=== PATIENT | male | born 1935 | race Caucasian/White ===

== ENCOUNTER 2021-01-15 19:16 | Inpatient (IN) | payer MEDICARE ==
[2021-01-15] MEDS ORDERED: Piperacillin/Tazobactam 4.5 GM VIAL ONE (19:29)
[2021-01-15] MEDS ORDERED: Vancomycin 1 GM/200 ML BAG ONE (19:40)
[2021-01-15] MEDS ORDERED: Norepinephrine 8 MG/0.9% NS 250 ML ONE (19:42)
[2021-01-15 19:53] LABS: #Eosinphils 0.2 thou/uL (0.0-0.7); #Lymphocytes 1.5 thou/uL (1.20-3.40); #Neutrophils 10.5 thou/uL (1.40-6.50); %Basophils 0.3 % (0.0-1.0); %Eosinophils 1.7 % (0.0-10.0); %Lymphocytes 11.6 % (21.0-51.0); %Monocytes 7.7 % (0.0-10.0); %Neutrophils 78.7 % (42.0-75.0); Hemoglobin 12.4 g/dL (14.0-18.0); Mean Corpuscular HGB CONC 33.6 g/dL (32.0-36.0); Mean Corpuscular Hemoglobin 31.6 pg (27.0-31.0); Mean Platelet Volume 7.2 fL (7.4-10.4); Platelet Count 266 thou/uL (130-400); RBC Distribution Width 12.3 % (11.5-14.5); Red Blood Cell (RBC) Count 3.94 mill/uL (4.70-6.10); White Blood Cell (WBC) Count 13.3 thou/uL (4.8-10.8)
[2021-01-15 19:53] LABS: Bilirubin Moderate (Negative); Blood, Urine Large (Negative); Glucose, Urine (Dipstick) Negative (Negative); Ketone, Urine 15 mg/dL (Negative); Leukocyte Moderate (Negative); Nitrite Negative (Negative); Protein, Urine (Dipstick) > or equal to 300 mg/dL (Neg-Trace); Urobilinogen 0.2 mg/dL (Less than 2)
[2021-01-15 19:57] LABS: Specific Gravity, Urine 1.028 (1.002-1.036)
[2021-01-15 19:58] LABS: Clarity Clear (Clear)
[2021-01-15 20:22] LABS: ALT (SGPT) 16 U/L (8-55); AST (SGOT) 36 U/L (5-34); Albumin 3.2 g/dL (3.4-4.8); Alkaline Phosphatase 49 U/L (40-110); Anion Gap 19 mmol/L (10-20); BUN (Urea Nitrogen) 34 mg/dL (8.4-25.7); Bilirubin, Total 0.4 mg/dL (0.2-1.2); Calc. Creatinine Clearance 0 mL/min (70-130); Calcium 9.6 mg/dL (7.8-10.44); Carbon Dioxide 19 mmol/L (23-31); Chloride 103 mmol/L (98-107); Globulin 3.7 g/dL (2.4-3.5); Glucose 118 mg/dL (83-110); Potassium 3.6 mmol/L (3.5-5.1); Protein, Total 6.9 g/dL (5.8-8.1); Sodium 137 mmol/L (136-145)
[2021-01-15 20:56] LABS: CKMB 8.6 ng/mL (0-6.6)
[2021-01-15] MEDS ORDERED: Acetaminophen 650 MG Suppository PR PRN (21:56)
[2021-01-15] MEDS ORDERED: Ondansetron ODT 4 MG TAB PO PRN (21:56)
[2021-01-15] MEDS ORDERED: Ondansetron PF 4 MG/2 ML Vial IVP PRN (21:56)
[2021-01-15] MEDS ORDERED: Enoxaparin Sodium 100 MG/ML SYRINGE SC SCH (22:00)
[2021-01-15] MEDS ORDERED: Aspirin 325 MG TAB ONE (22:29)
[2021-01-15 22:32] LABS: SARS-CoV-2 NAA Rapid Test Not Detected (NotDetected)
[2021-01-15 23:20] LABS: Troponin I 2.035 ng/mL (< 0.028)
[2021-01-16] MEDS: Sodium Chloride 0.9% 1,000 ML IV SCH ×3 (00:35→17:13)
[2021-01-16 01:11] VITALS: BMI 35.5
[2021-01-16] MEDS: Piperacillin/Tazobactam 3.375 GM in Sodium Chloride 0.9% 100 ML IVPB SCH ×3 (01:52→17:12)
[2021-01-16 02:30] LABS: Troponin I 1.639 ng/mL (< 0.028)
[2021-01-16] MEDS: VANCOMYCIN 1.25 GM/250 ML BAG 1.25 GM in Premix Bag 1 BAG IVPB SCH (02:33)
[2021-01-16] MEDS ORDERED: Norepinephrine 8 MG/0.9% NS 250 ML IVPB SCH (04:45)
[2021-01-16 04:56] LABS: #Eosinphils 0.1 thou/uL (0.0-0.7); #Lymphocytes 1.9 thou/uL (1.20-3.40); #Monocytes 1.2 thou/uL (0.11-0.59); #Neutrophils 11.5 thou/uL (1.40-6.50); %Basophils 0.1 % (0.0-1.0); %Eosinophils 0.7 % (0.0-10.0); %Lymphocytes 12.6 % (21.0-51.0); %Monocytes 8.2 % (0.0-10.0); %Neutrophils 78.4 % (42.0-75.0); Hemoglobin 11.4 g/dL (14.0-18.0); Mean Corpuscular HGB CONC 33.3 g/dL (32.0-36.0); Mean Corpuscular Hemoglobin 31.4 pg (27.0-31.0); Mean Corpuscular Volume 94.6 fL (78.0-98.0); Mean Platelet Volume 7.7 fL (7.4-10.4); Platelet Count 255 thou/uL (130-400); RBC Distribution Width 12.2 % (11.5-14.5); Red Blood Cell (RBC) Count 3.64 mill/uL (4.70-6.10); White Blood Cell (WBC) Count 14.7 thou/uL (4.8-10.8)
[2021-01-16 05:13] LABS: Anion Gap 13 mmol/L (10-20); BUN (Urea Nitrogen) 30 mg/dL (8.4-25.7); Calc. Creatinine Clearance 39 mL/min (70-130); Calcium 8.9 mg/dL (7.8-10.44); Carbon Dioxide 24 mmol/L (23-31); Chloride 106 mmol/L (98-107); Glucose 124 mg/dL (83-110); Sodium 140 mmol/L (136-145)
[2021-01-16] MEDS ORDERED: DOPamine 400 MG/D5W 250 ML 250 ML ONE (08:08)
[2021-01-16] MEDS: DOPamine 400 MG/D5W 250 ML 250 ML IVPB SCH ×2 (08:10→19:25)
[2021-01-16] MEDS ORDERED: Potassium Chloride 20 MEQ in Premix Bag 1 BAG IVPB SCH ×3 (08:30→20:00)
[2021-01-16] MEDS ORDERED: Vancomycin HCl 1 GM in Sodium Chloride 0.9% 250 ML 300 ML IVPB SCH (09:00)
[2021-01-16 13:40] LABS: Potassium 3.3 mmol/L (3.5-5.1)
[2021-01-16 18:36] LABS: Potassium 3.3 mmol/L (3.5-5.1)
[2021-01-16] MEDS ORDERED: Potassium Chloride 20 MEQ in Premix Bag 1 BAG IVPB PRN (19:41)
[2021-01-16] MEDS: Enoxaparin Sodium 120 MG/0.8 ML SYRINGE SC SCH (20:18)
[2021-01-17] MEDS: Sodium Chloride 0.9% 1,000 ML IV SCH ×3 (01:38→18:25)
[2021-01-17 08:24] LABS: #Eosinphils 0.4 thou/uL (0.0-0.7); #Lymphocytes 1.1 thou/uL (1.20-3.40); #Monocytes 0.8 thou/uL (0.11-0.59); #Neutrophils 8.4 thou/uL (1.40-6.50); %Basophils 0.4 % (0.0-1.0); %Eosinophils 3.8 % (0.0-10.0); %Lymphocytes 10.4 % (21.0-51.0); %Monocytes 7.5 % (0.0-10.0); %Neutrophils 77.8 % (42.0-75.0); Hemoglobin 11.2 g/dL (14.0-18.0); Mean Corpuscular HGB CONC 33.5 g/dL (32.0-36.0); Mean Corpuscular Hemoglobin 31.7 pg (27.0-31.0); Mean Corpuscular Volume 94.8 fL (78.0-98.0); Mean Platelet Volume 7.1 fL (7.4-10.4); Platelet Count 214 thou/uL (130-400); RBC Distribution Width 12.3 % (11.5-14.5); Red Blood Cell (RBC) Count 3.53 mill/uL (4.70-6.10); White Blood Cell (WBC) Count 10.7 thou/uL (4.8-10.8)
[2021-01-17 08:34] LABS: Anion Gap 9 mmol/L (10-20); BUN (Urea Nitrogen) 15 mg/dL (8.4-25.7); Calc. Creatinine Clearance 0 mL/min (70-130); Calcium 8.4 mg/dL (7.8-10.44); Carbon Dioxide 24 mmol/L (23-31); Chloride 111 mmol/L (98-107); Glucose 96 mg/dL (83-110); Potassium 3.3 mmol/L (3.5-5.1); Sodium 141 mmol/L (136-145)
[2021-01-17] MEDS: Piperacillin/Tazobactam 3.375 GM in Sodium Chloride 0.9% 100 ML IVPB SCH ×3 (09:56→21:00)
[2021-01-17] MEDS: VANCOMYCIN 1.25 GM/250 ML BAG 1.25 GM in Premix Bag 1 BAG IVPB SCH ×2 (11:17→21:00)
[2021-01-17] MEDS ORDERED: Potassium Chloride 20 MEQ in Premix Bag 1 BAG IVPB PRN (12:02)
[2021-01-17] MEDS: Acetaminophen 325 MG TAB PO PRN ×2 (13:06→20:58)
[2021-01-17 17:46] LABS: Potassium 3.4 mmol/L (3.5-5.1)
[2021-01-17] MEDS ORDERED: Potassium Chloride 20 MEQ TAB PO SCH (19:15)
[2021-01-17] MEDS: Enoxaparin Sodium 120 MG/0.8 ML SYRINGE SC SCH (20:58)
[2021-01-18] MEDS: Piperacillin/Tazobactam 3.375 GM in Sodium Chloride 0.9% 100 ML IVPB SCH ×4 (01:50→17:03)
[2021-01-18] MEDS: Sodium Chloride 0.9% 1,000 ML IV SCH ×3 (03:49→20:24)
[2021-01-18 06:06] LABS: #Eosinphils 0.5 thou/uL (0.0-0.7); #Lymphocytes 1.7 thou/uL (1.20-3.40); #Monocytes 0.8 thou/uL (0.11-0.59); #Neutrophils 5.9 thou/uL (1.40-6.50); %Basophils 0.1 % (0.0-1.0); %Eosinophils 5.8 % (0.0-10.0); %Lymphocytes 18.7 % (21.0-51.0); %Monocytes 9.2 % (0.0-10.0); %Neutrophils 66.3 % (42.0-75.0); Hemoglobin 11.5 g/dL (14.0-18.0); Mean Corpuscular HGB CONC 33.7 g/dL (32.0-36.0); Mean Corpuscular Volume 94.9 fL (78.0-98.0); Mean Platelet Volume 7.3 fL (7.4-10.4); Platelet Count 197 thou/uL (130-400); RBC Distribution Width 12.5 % (11.5-14.5); Red Blood Cell (RBC) Count 3.58 mill/uL (4.70-6.10); White Blood Cell (WBC) Count 8.9 thou/uL (4.8-10.8)
[2021-01-18 06:33] LABS: Anion Gap 10 mmol/L (10-20); BUN (Urea Nitrogen) 10 mg/dL (8.4-25.7); Calc. Creatinine Clearance 0 mL/min (70-130); Calcium 8.4 mg/dL (7.8-10.44); Carbon Dioxide 21 mmol/L (23-31); Chloride 113 mmol/L (98-107); Glucose 85 mg/dL (83-110); Potassium 3.2 mmol/L (3.5-5.1); Sodium 141 mmol/L (136-145)
[2021-01-18] MEDS: Potassium Chloride 20 MEQ TAB PO SCH (10:45)
[2021-01-18] MEDS: VANCOMYCIN 1.25 GM/250 ML BAG 1.25 GM in Premix Bag 1 BAG IVPB SCH (12:49)
[2021-01-18] MEDS: Enoxaparin Sodium 120 MG/0.8 ML SYRINGE SC SCH (20:23)
[2021-01-19] MEDS: Piperacillin/Tazobactam 3.375 GM in Sodium Chloride 0.9% 100 ML IVPB SCH ×3 (01:30→18:36)
[2021-01-19] MEDS: Sodium Chloride 0.9% 1,000 ML IV SCH ×2 (05:05→10:46)
[2021-01-19 06:50] LABS: #Eosinphils 0.5 thou/uL (0.0-0.7); #Lymphocytes 1.9 thou/uL (1.20-3.40); #Monocytes 0.6 thou/uL (0.11-0.59); #Neutrophils 4.6 thou/uL (1.40-6.50); %Basophils 0.2 % (0.0-1.0); %Lymphocytes 24.7 % (21.0-51.0); %Monocytes 8.4 % (0.0-10.0); %Neutrophils 60.7 % (42.0-75.0); Hemoglobin 11.4 g/dL (14.0-18.0); Mean Corpuscular HGB CONC 33.7 g/dL (32.0-36.0); Mean Corpuscular Hemoglobin 31.7 pg (27.0-31.0); Mean Corpuscular Volume 94.2 fL (78.0-98.0); Mean Platelet Volume 7.1 fL (7.4-10.4); Platelet Count 211 thou/uL (130-400); RBC Distribution Width 12.6 % (11.5-14.5); Red Blood Cell (RBC) Count 3.58 mill/uL (4.70-6.10); White Blood Cell (WBC) Count 7.5 thou/uL (4.8-10.8)
[2021-01-19 07:11] LABS: Anion Gap 12 mmol/L (10-20); BUN (Urea Nitrogen) 7 mg/dL (8.4-25.7); Calc. Creatinine Clearance 0 mL/min (70-130); Calcium 8.5 mg/dL (7.8-10.44); Carbon Dioxide 20 mmol/L (23-31); Chloride 111 mmol/L (98-107); Glucose 85 mg/dL (83-110); Sodium 140 mmol/L (136-145)
[2021-01-19 07:20] LABS: Potassium 2.8 mmol/L (3.5-5.1)
[2021-01-19] MEDS ORDERED: Potassium Chloride 20 MEQ TAB PO SCH (09:00)
[2021-01-19 10:24] LABS: Vancomycin, Trough 12.6 ug/mL
[2021-01-19] MEDS: Potassium Chloride 20 MEQ TAB PO SCH (10:31)
[2021-01-19] MEDS ORDERED: Vancomycin 1.5 GRAM/300 ML BAG 1.5 GM in Premix Bag 1 BAG IVPB SCH (12:00)
[2021-01-19] MEDS: VANCOMYCIN 1.25 GM/250 ML BAG 1.25 GM in Premix Bag 1 BAG IVPB SCH (12:16)
[2021-01-19] MEDS: Acetaminophen 325 MG TAB PO PRN (12:44)
[2021-01-19] MEDS ORDERED: Non-Formulary Item 1 EACH (Diclofenac Sodium [Diclofenac Sodium 1% Gel] 100 GM Tube) TOP PRN (12:45)
[2021-01-19] MEDS ORDERED: Diclofenac 1% 100 GM GEL TP PRN (12:51)
[2021-01-19] MEDS ORDERED: Gabapentin 300 MG CAP PO SCH (15:00)
[2021-01-19 15:56] VITALS: BP 124/58; TEMP 98.7
[2021-01-19] MEDS ORDERED: Melatonin 3 MG TAB PO SCH (21:00)
[2021-01-19] MEDS ORDERED: Finasteride 5 MG TAB PO SCH (21:00)
[2021-01-19] MEDS ORDERED: Donepezil HCl 5 MG TAB PO SCH (21:00)
[2021-01-19] MEDS ORDERED: Non-Formulary Item 1 EACH (Melatonin [Melatonin] 10 MG Tablet) PO SCH (21:00)
[2021-01-20] MEDS ORDERED: Aspirin 325 MG TAB PO SCH (09:00)
[2021-01-20] MEDS ORDERED: Ascorbic Acid 500 mg Chewable Tablet PO SCH (09:00)
[2021-01-20] MEDS ORDERED: Polyethylene Glycol 3350 17 GM Packet PO SCH (09:00)
[2021-01-20] MEDS ORDERED: Cholecalciferol 1,000 UNITS (25 MCG) TAB PO SCH ×2 (09:00)
[2021-01-20] MEDS ORDERED: Non-Formulary Item 1 EACH (Zinc [Zinc] 50 MG Tablet) PO SCH (09:00)
[2021-01-20] MEDS ORDERED: Zinc Sulfate 220 MG CAP PO SCH (09:00)
== END 2021-01-19 18:59 | disposition hospice, home (50) | DRG 698 ==
LOC: ERS 19:16 → CCU 21:26 → T4-A 01-17 18:54
PROVIDERS: ADMIT Student in an Organized Health Care Education/Training Program; ATTEND Internal Medicine
PROC: 3E033XZ Introduction of Vasopressor into Peripheral Vein, Percutaneous Approach (ICD-10-PCS; principal; 2021-01-15)
DX: T83.511A Infection and inflammatory reaction due to indwelling urethral catheter, initial encounter (principal); A41.9 Sepsis, unspecified organism; R65.21 Severe sepsis with septic shock; G93.41 Metabolic encephalopathy; I21.A1 Myocardial infarction type 2; N17.9 Acute kidney failure, unspecified; I44.2 Atrioventricular block, complete; N39.0 Urinary tract infection, site not specified; I25.10 Atherosclerotic heart disease of native coronary artery without angina pectoris; I10 Essential (primary) hypertension; Z20.822 Contact with and (suspected) exposure to COVID-19; Y83.8 Other surgical procedures as the cause of abnormal reaction of the patient, or of later complication, without mention of misadventure at the time of the procedure; Z66 Do not resuscitate; G30.9 Alzheimer's disease, unspecified; F02.80 Dementia in other diseases classified elsewhere, unspecified severity, without behavioral disturbance, psychotic disturbance, mood disturbance, and anxiety; N40.0 Benign prostatic hyperplasia without lower urinary tract symptoms; E87.6 Hypokalemia; N31.9 Neuromuscular dysfunction of bladder, unspecified; Z79.82 Long term (current) use of aspirin; Z79.899 Other long term (current) drug therapy; Z95.5 Presence of coronary angioplasty implant and graft; Z90.49 Acquired absence of other specified parts of digestive tract
CPT/HCPCS: 0240U; 36415; 36556; 70450; 71045; 80048; 80053; 80202; 81003; 81015; 82553; 83605; 83880; 84484; 85025; 87040; 87086; 93005; 93010; 93306; 96365; 96366; 96367; 96368; J1265; J1650; J2405; J2543; J3370; J3480; J3490